=== PATIENT | male | born 1940 | race Caucasian/White ===

== ENCOUNTER 2020-04-27 21:03 | Emergency (ER) | payer MEDICARE, BC ==
--- NOTE | 2020-04-27 21:49 | ER Document Report ---
ED General - General Chief Complaint: Fever Stated Complaint: FEELING FEVERISH, MEDICAL CLEARANCE Time Seen by Provider: 04/27/20 21:25 Primary Care Provider: ROOPA RIVERA MD [Primary Care Provider] - Follow up as needed Notes: Patient is an 80-year-old male that comes to the emergency department from home for chief complaint of subjective fevers today, occasional mild cough, and ongoing dental pain just below his partial in his mid lower gumline. Patient states the dental pain is been ongoing, he was seen by a dentist, placed on a current antibiotic that he is uncertain of the name, he states that he thinks all his symptoms are related to the antibiotic that he is taking, he states he feels normal, he denies shortness of breath, chest pain, headache, nausea, vomiting, congestion, sore throat. Past medical history of CABG, chronic back pain and back surgery, partial bowel resection for what ended up being a benign lesion. He denies smoking, COPD, asthma, or immunocompromise condition. TRAVEL OUTSIDE OF THE [place] IN LAST 30 DAYS: No - Related Data Allergies/Adverse Reactions: No Known Allergies Allergy (Verified 04/12/15 10:16) Past Medical History - General Information source: Patient - Social History Smoking Status: Never Smoker Lives with: Family Family History: Reviewed & Not Pertinent - Past Medical History Cardiac Medical History: Reports: Hx Coronary Artery Disease, Hx Hypercholesterolemia, Hx Hypertension Denies: Hx Heart Attack Pulmonary Medical History: Denies: Hx Asthma, Hx Bronchitis, Hx COPD, Hx Pneumonia, Hx Tuberculosis Neurological Medical History: Denies: Hx Cerebrovascular Accident, Hx Seizures Renal/ Medical History: Reports: Hx Benign Prostatic Hyperplasia Musculoskeletal Medical History: Denies Hx Arthritis Past Surgical History: Reports: Hx Abdominal Surgery - S/P COLON SURGERY WITH ANASTOMOSIS FROM POLYPS, Hx Bowel Surgery - colon resection, Hx Coronary Artery Bypass Graft - 5 VESSEL, Hx Open Heart Surgery. Denies: Hx Pacemaker - Immunizations Hx Diphtheria, Pertussis, Tetanus Vaccination: No Review of Systems - Review of Systems Constitutional: See HPI EENT: See HPI Cardiovascular: No symptoms reported Respiratory: See HPI Gastrointestinal: No symptoms reported Genitourinary: No symptoms reported Male Genitourinary: No symptoms reported Musculoskeletal: No symptoms reported Skin: No symptoms reported Hematologic/Lymphatic: No symptoms reported Neurological/Psychological: No symptoms reported Physical Exam - Vital signs Vitals: Temp Pulse Resp BP Pulse Ox 98.7 F 70 16 133/71 H 96 04/27/20 21:19 04/27/20 21:19 04/27/20 21:19 04/27/20 21:19 04/27/20 21:19 - Notes Notes: GENERAL: Alert, interacts well. No acute distress. Talkative, smiling, well- appearing HEAD: Normocephalic, atraumatic. EYES: Pupils equal, round, and reactive to light. Extraocular movements intact. ENT: Oral mucosa moist, tongue midline. Oropharynx unremarkable. Patient has an upper partial and a small lower partial, there is mild amount of erythema over the mid lower gumline although there is no surrounding induration, fluctuance, swelling, significant tenderness, or signs of abscess. Unremarkable oral exam otherwise. Airway patent. Nares patent, sinuses non-tender, ear canals un remarkable, TM's intact. Hearing aid present in the right ear. NECK: Full range of motion. Supple. Trachea midline. No lymphadenopathy. LUNGS: Clear to auscultation bilaterally, no wheezes, rales, or rhonchi. No respiratory distress. Non-tender chest wall. HEART: Regular rate and rhythm. No murmur ABDOMEN: Soft, non-tender. Non-distended. EXTREMITIES: Moves all 4 extremities spontaneously. No edema, normal radial and dorsalis pedis pulses bilaterally. No cyanosis. BACK: no cervical, thoracic, lumbar midline tenderness. No saddle anesthesia, normal distal neurovascular exam. Moves all extremities in full range of motion. NEUROLOGICAL: Alert and oriented x3. Normal speech. Cranial nerves II through XII grossly intact. Strength 5/5 in all extremities. PSYCH: Normal affect, normal mood. SKIN: Warm, dry, normal turgor. No rashes or lesions noted. Course - Re-evaluation Re-evalutation: Patient is talkative, smiling, well-appearing. He appears much younger than his stated age. Lungs clear, abdomen soft and benign, physical examination is unremarkable including only mild erythema of the lower gumline near his partial. No evidence of oral abscess. Vital signs unremarkable. Chest x-ray negative for acute findings, CBC and chemistry are unremarkable. On reevaluation patient has no complaints, is requesting to leave. Patient will be tested for COVID-19 based on his reported symptoms, discussed follow-up with primary care and, discussed return precautions. Patient states appreciation and agreement. Stable, well-appearing, asymptomatic at time of discharge. - Vital Signs Vital signs: Temp Pulse Resp BP Pulse Ox 98.7 F 70 16 133/71 H 96 04/27/20 21:19 04/27/20 21:19 04/27/20 21:19 04/27/20 21:19 04/27/20 21:19 - Laboratory Result Diagrams: 04/27/20 22:00 04/27/20 22:00 Laboratory results interpreted by me: 04/27/20 04/27/20 22:00 22:00 RBC 4.25 L Hgb 13.1 L Sodium 135.7 L Est GFR (MDRD) Non-Af 56 L Discharge - Discharge Clinical Impression: Cough, Subjective fever Condition: Stable Disposition: HOME, SELF-CARE Additional Instructions: Your chest x-ray, lab work, and evaluation do not show any concerning findings. You have been tested for COVID-19, please follow the instructions listed for this below, you will be contacted with the test and results. Continue antibiotic for your dental infection, follow-up with your dentist for additional management. Return for any concerning symptoms including swelling of the face, spiking fevers, difficulty breathing, or any other concerning or worsening symptoms. As a person under investigation for COVID-19, the [place] Department of Health and Human Services (division on public health) advises you to adhere to the following guidance until your test results are reported to you. If your test result is positive, you will receive additional information from your provider and your local health department at that time. Remain at home until you are cleared by the health provider or public health authorities. Keep a log of visitors to your home, notify any visitors to your home of your isolation status. If you plan to move to a new address or leave the [facility], notify the local health department in your County. Call your Doctor or seek care if you have an urgent medical need. Before seeking medical care, call him to get instructions from the provider before arriving at the medical office, clinic, or hospital. Notify them that you are being tested for the virus (COVID-19) so that arrangements can be made, as necessary, to prevent transmission to others in the healthcare setting. Next, notify the local health department in your county. If a medical emergency arises and you need to call 911, inform the first responders that you are being tested for the virus that causes COVID-19. Next, notify the local health department in your county. Referrals: ROOPA RIVERA MD [Primary Care Provider] - Follow up as needed
--- NOTE | 2020-04-27 22:19 | RADIOLOGY REPORT (SQ) ---
EXAM DESCRIPTION: XR CHEST 1 VIEW COMPLETED DATE/TME: 04/27/2020 21:44 CLINICAL HISTORY: 80 years, Male, cough, subjective fevers COMPARISON: None. NUMBER OF VIEWS: 1 TECHNIQUE: Portable chest LIMITATIONS: None. FINDINGS: The heart size is normal. Postsurgical change of the mediastinum. Mild elevation of the right hemidiaphragm. Osteopenia. No pneumothorax. Minimal scarring in each lung base. IMPRESSION: No acute cardiopulmonary process copyright 2010 [employer]- All Rights Reserved
[2020-04-27 22:24] LABS: ABSOLUTE EOSINOPHILS # (AUTO) 0.3 10^3/uL (0.0-0.6); ABSOLUTE LYMPHOCYTES (AUTO) 1.1 10^3/uL (0.5-4.7); ABSOLUTE MONOCYTES (AUTO) 0.8 10^3/uL (0.1-1.4); ABSOLUTE NEUT (AUTO) 3.8 10^3/uL (1.7-8.2); BASOPHILS % (AUTO) 0.6 % (0-2); EOSINOPHILS % (AUTO) 4.5 % (0-6); HEMATOCRIT 38.4 % (37.9-51.0); HEMOGLOBIN 13.1 g/dL (13.5-17.0); LYMPHOCYTES % (AUTO) 18.1 % (13-45); MEAN CORPUSCULAR HEMOGLOBIN 30.7 pg (27.0-33.4); MEAN CORPUSCULAR VOLUME 90 fl (80-97); MONOCYTES % (AUTO) 12.9 % (3-13); PLATELET COUNT 219 10^3/uL (150-450); RED BLOOD COUNT 4.25 10^6/uL (4.35-5.55); RED CELL DISTRIBUTION WIDTH 13.8 % (11.5-14.0); SEGMENTED NEUTROPHILS % (AUTO) 63.9 % (42-78); TOTAL CELLS COUNTED % (AUTO) 100 %
[2020-04-27 22:34] LABS: ANION GAP 7 (5-19); BLOOD UREA NITROGEN 18 mg/dL (7-20); CALCIUM 9.4 mg/dL (8.4-10.2); CARBON DIOXIDE 30 mmol/L (22-30); CHLORIDE 99 mmol/L (98-107); GLUCOSE 107 mg/dL (75-110); POTASSIUM 4.3 mmol/L (3.6-5.0)
[2020-04-27 23:19] VITALS: BP 122/62
== END 2020-04-27 23:20 | disposition home or self-care (01) ==
LOC: ER 21:03
DX: R05 Cough (principal); R50.9 Fever, unspecified; K08.9 Disorder of teeth and supporting structures, unspecified; Z20.828 Contact with and (suspected) exposure to other viral communicable diseases; I25.10 Atherosclerotic heart disease of native coronary artery without angina pectoris; E78.00 Pure hypercholesterolemia, unspecified; I10 Essential (primary) hypertension
CPT/HCPCS: 99284; 36415; 87040; 85025; 80048; 71045; U0003; C9803; 87635